=== PATIENT | male | born 1995 | race Caucasian/White ===

== ENCOUNTER 2017-10-22 01:17 | Emergency (ER) | payer MEDICAID ==
[~2017-10-22 01:17] MED LIST: DIAZ-351 PO
== END 2017-10-22 02:11 | disposition left against medical advice (07) ==
LOC: ER 01:18
DX: R21 Rash and other nonspecific skin eruption (principal); Z53.21 Procedure and treatment not carried out due to patient leaving prior to being seen by health care provider

== ENCOUNTER 2018-07-02 19:15 | Emergency (ER) | payer MEDICAID ==
[~2018-07-02] VITALS: Ht 190.5 cm; Wt 72.0 kg
[2018-07-02] MEDS ORDERED: SULF1TAB49 PO (20:53)
[2018-07-02] MEDS ORDERED: sulfamethoxazole/trimethoprim DS (800/160mg) tablet PO ONE (20:55)
[2018-07-02 21:10] VITALS: BP 135/87
== END 2018-07-02 21:11 | disposition home or self-care (01) ==
LOC: ER 19:16
DX: L03.114 Cellulitis of left upper limb (principal); F12.10 Cannabis abuse, uncomplicated; Z79.899 Other long term (current) drug therapy
CPT/HCPCS: 99283

== ENCOUNTER 2018-08-11 21:26 | Emergency (ER) | payer MEDICAID ==
[~2018-08-11] VITALS: Ht 190.5 cm; Wt 75.0 kg
[2018-08-11 21:29] VITALS: BP 141/80
== END 2018-08-11 23:50 | disposition left against medical advice (07) ==
LOC: ER 21:27
DX: S61.217A Laceration without foreign body of left little finger without damage to nail, initial encounter (principal); Z53.21 Procedure and treatment not carried out due to patient leaving prior to being seen by health care provider; W45.8XXA Other foreign body or object entering through skin, initial encounter; Y93.89 Activity, other specified; Y92.89 Other specified places as the place of occurrence of the external cause; Y99.8 Other external cause status

== ENCOUNTER 2019-07-01 01:24 | Emergency (ER) | payer MEDICAID ==
[~2019-07-01] VITALS: Ht 190.5 cm; Wt 75.0 kg
[2019-07-01 01:34] VITALS: BP 123/80
== END 2019-07-01 01:40 | disposition home or self-care (01) ==
LOC: ER 01:25
DX: J06.9 Acute upper respiratory infection, unspecified (principal); F12.90 Cannabis use, unspecified, uncomplicated; Z98.890 Other specified postprocedural states; Z79.899 Other long term (current) drug therapy
CPT/HCPCS: 99281

== ENCOUNTER 2019-08-24 00:05 | Emergency (ER) | payer MEDICAID ==
[~2019-08-24] VITALS: Ht 190.5 cm; Wt 75.0 kg
[2019-08-24 00:12] VITALS: BP 132/86
== END 2019-08-24 02:10 ==
LOC: ER 02:06
DX: T59.91XA Toxic effect of unspecified gases, fumes and vapors, accidental (unintentional), initial encounter (principal); F12.90 Cannabis use, unspecified, uncomplicated; F17.200 Nicotine dependence, unspecified, uncomplicated; Z98.890 Other specified postprocedural states; Y92.89 Other specified places as the place of occurrence of the external cause
CPT/HCPCS: 99283

== ENCOUNTER 2020-08-28 00:19 | Emergency (ER) | payer MEDICAID ==
[~2020-08-28] VITALS: Ht 190.5 cm; Wt 77.3 kg
[2020-08-28] MEDS ORDERED: ORPH100T2 PO (01:13)
[2020-08-28 01:56] VITALS: BP 114/79
== END 2020-08-28 02:03 | disposition home or self-care (01) ==
LOC: ER 00:20
DX: F07.81 Postconcussional syndrome (principal); R51.9 Headache, unspecified; M54.2 Cervicalgia; F12.90 Cannabis use, unspecified, uncomplicated; Z72.89 Other problems related to lifestyle; Z98.890 Other specified postprocedural states; Z79.899 Other long term (current) drug therapy
CPT/HCPCS: 99283

== ENCOUNTER 2024-11-09 21:26 | Emergency (ER) | payer MEDICAID ==
[~2024-11-09] VITALS: Ht 190.5 cm; Wt 86.2 kg
[~2024-11-09 21:26] MED LIST changes: +ORPH100T4 PO
[2024-11-09] MEDS: pantoprazole 40 MG vial IV ONE (22:28)
[2024-11-09] MEDS: ondansetron/PF 4mg/2ml inj IV ONE (22:28)
[2024-11-09] MEDS: normal saline 1000ML IV soln IVB ONE (22:32)
[2024-11-09 23:06] LABS: BASOPHILS % (AUTO) 0.2 % (0-1); EOSINOPHILS # (AUTO) 0.1 X10'3 (0-0.9); EOSINOPHILS % (AUTO) 0.9 % (0-6); HEMATOCRIT 39.1 % (42.0-52.0); HEMOGLOBIN 13.2 g/dl (14.0-17.9); LYMPHOCYTES # (AUTO) 1.8 X10'3 (1.1-4.8); LYMPHOCYTES % (AUTO) 20.3 % (21-51); MEAN CORPUSCULAR HEMOGLOBIN 30.4 PG (27.0-31.0); MEAN CORPUSCULAR HGB CONC 33.7 g/dL (33.0-36.5); MEAN CORPUSCULAR VOLUME 90.3 FL (78-98); MEAN PLATELET VOLUME 7.6 FL (7.4-10.4); MONOCYTES # (AUTO) 0.8 X10'3 (0-0.9); MONOCYTES % (AUTO) 8.6 % (2-12); NEUTROPHILS # (AUTO) 6.1 X10'3 (1.8-7.7); PLATELET COUNT 293 X10'3 (140-440); RED BLOOD COUNT 4.33 X10'6 (4.70-6.10); WHITE BLOOD COUNT 8.8 X10'3 (4.5-11.0)
[2024-11-09 23:16] LABS: ALBUMIN 3.2 G/DL (3.4-5.0); ANION GAP 5 (8-16); BLOOD UREA NITROGEN 14 MG/DL (7-18); BUN/CREATININE RATIO 16.7 (10.0-20.0); CALCIUM 8.3 MG/DL (8.5-10.1); CHLORIDE 105 MMOL/L (99-107); CREATININE 0.84 MG/DL (0.60-1.10); GLUCOSE 116 MG/DL (70-104); LIPASE 23 U/L (16-77); POTASSIUM 3.5 MMOL/L (3.5-5.1); SODIUM 140 MMOL/L (135-145); TOTAL CARBON DIOXIDE 29.9 MMOL/L (24-32); eCRCL 152 ML/MIN; eGFR > 90 ML/MIN
[2024-11-10 00:07] LABS: BILIRUBIN,URINE NEGATIVE (Neg); CLARITY,URINE CLEAR (Clear); COLOR,URINE YELLOW (Yellow); GLUCOSE, URINE NEGATIVE (Neg); KETONES,URINE NEGATIVE (Neg); LEUKOCYTE ESTERASE ,URINE NEGATIVE (Neg); NITRITES, URINE NEGATIVE (Neg); OCCULT BLOOD,URINE NEGATIVE (Neg); PROTEIN,URINE 100 mg/dl (Neg); UROBILINOGEN,URINE 0.2 E.U/dL (0.2-1.0)
[2024-11-10 00:09] LABS: UA COLLECTION TYPE CLN CATCH MIDSTREAM
[2024-11-10 00:22] LABS: SPERM MODERATE /HPF (NEGATIVE)
[2024-11-10 00:23] LABS: BACTERIA,URINE NONE SEEN /HPF (Neg); RBC,URINE NONE SEEN /HPF (0-2); SQUAMOUS EPITHELIAL CELL,UR NONE SEEN /LPF (FEW); WBC,URINE 0-4 /HPF (0-4)
[2024-11-10 00:24] LABS: MUCUS STRANDS MODERATE /LPF (Neg)
[2024-11-10] MEDS ORDERED: iohexol 300mg/ml 100ml inj. ONE (01:20)
[2024-11-10] MEDS ORDERED: morphine 2 MG/ML inj. syringe IV PRN (01:45)
[2024-11-10] MEDS ORDERED: ACET-3068 PO (03:33)
[2024-11-10] MEDS ORDERED: CYCL-1 PO (03:33)
[2024-11-10 03:52] VITALS: BP 135/76; PULSE 87; RESP 14; TEMP 97.6; O2SAT 100
== END 2024-11-10 03:56 | disposition home or self-care (01) ==
LOC: ER 21:26
DX: N50.82 Scrotal pain (principal); M79.604 Pain in right leg; R11.2 Nausea with vomiting, unspecified; F12.90 Cannabis use, unspecified, uncomplicated
CPT/HCPCS: 36415; 74177; 76870; 80048; 81001; 83690; 85025; 93976; 96361; 96374; 96375; 99285; J2405; J2470; J7030; Q9967; 81003